=== PATIENT | male | born 1945 | race Two or more races ===

== ENCOUNTER 2024-12-20 08:33 | Day surgery (SDC) | payer OTHER ==
[~2024-12-20] VITALS: Ht 180.3 cm; Wt 109.8 kg
[2024-12-20] VITALS (9 sets, daily range): BP systolic 137–158; BP diastolic 72–78; PULSE 73–85; RESP 12–19; O2SAT 94–95
[~2024-12-20 08:33] MED LIST: ALBU108A5 IN; AML5T PO; ATOR40TA52 PO; CARV6.2551 PO; LOSA-535 PO; OMEP20TA PO; TOLT2TAB2 PO
[2024-12-20] MEDS ORDERED: IODIXANOL 320MG/ML 100ML BTL IV ONE (13:42)
[2024-12-20] MEDS ORDERED: GLYCOPYRROLATE 0.2 MG/ML 1ML VIAL ONE (14:04)
[2024-12-20] MEDS ORDERED: LIDOCAINE 2%HCL (LOCAL ANESTH.) INJ 20ML MDV ONE (14:04)
[2024-12-20] MEDS ORDERED: PHENYLEPHRINE HCL 10 MG/ML VL ONE ×2 (14:04→14:05)
[2024-12-20] MEDS ORDERED: ANGIOMAX 250 MG VIAL IV ONE (14:11)
--- NOTE | 2024-12-20 16:22 | DVHOP2 ---
Operative Report - 2 Report Details Date: 12/20/24 Preop Diagnosis: Carotid stenosis Postop Diagnosis: Mild carotid stenosis Surgeon: Hola Palomares MD Anesthesiologist: Local anesthetic Anesthesia: Local Consent: The patient was informed of the risks and benefits of the procedure. These include but are not limited to complications of anesthesia, postoperative infection, incomplete relief of symptoms, recurrence of symptoms, damage to blood vessels, nerves and tendons, deep venous thrombosis, pulmonary embolism and possible need for repeat surgery in the future. Complications: No complications Findings: Mild carotid stenosis Indications for Surgery: Abnormal Doppler Name of Procedure Performed Carotid angiography Procedure Details Procedure Details: Prior local anesthetic to the right groin. Full informed consent obtained. The patient was prepped and draped in usual fashion. A six [place]ian sheath placed in the right femoral artery through which a JR4 diagnostic catheter was used to cannulate the innominate left common carotid and left subclavian without complications. Angiographic evaluation was performed. Aortic blood pressure was 150/90. End-diastolic pressure was not measured. Angiographic evaluation reveals a normal right innominate. Normal right vertebral. The common carotid as well as the internal and external carotids are normal. Visualization to the base and mid brain were considered normal. The left common carotid is normal, there is a mild 15-20% plaque stenosis at its proximal portion. There is a band at this level. The internal and external carotids are normal. The circulation to the left brain is normal. The left subclavian has mild plaquing. The vertebral is within normal limits. No lesions noted. Impression: Normal cerebral circulation. Normal carotids and vertebrals. Normal subclavian and innominate. Recommendations medical therapy is warranted continue risk factor modification. Condition Good Disposition Home Date of Service: Dec 20, 2024 Billing Provider: HOLA PALOMARES Sr., MD Cardiology Common Codes: [id number] INP/OBS CARE (High) (Carotid angiography performed.) HOLA PALOMARES Sr., MD Dec 20, 2024 16:21
== END 2024-12-20 19:05 | disposition home or self-care (01) ==
LOC: CATH 08:33
PROVIDERS: ATTEND Internal Medicine
DX: I65.22 Occlusion and stenosis of left carotid artery (principal); I10 Essential (primary) hypertension; I77.89 Other specified disorders of arteries and arterioles; E78.5 Hyperlipidemia, unspecified; J44.9 Chronic obstructive pulmonary disease, unspecified; G89.29 Other chronic pain; G47.8 Other sleep disorders; Z79.899 Other long term (current) drug therapy; Z96.643 Presence of artificial hip joint, bilateral; Z96.612 Presence of left artificial shoulder joint; Z96.611 Presence of right artificial shoulder joint; Z87.891 Personal history of nicotine dependence; Z88.8 Allergy status to other drugs, medicaments and biological substances; Z82.49 Family history of ischemic heart disease and other diseases of the circulatory system; Z86.2 Personal history of diseases of the blood and blood-forming organs and certain disorders involving the immune mechanism
CPT/HCPCS: 36223; 36224; 36225; 36227; C1760; C1769; C1894; J1644; J7030; Q9967; 99152